=== PATIENT | male | born 1975 | race Caucasian/White ===

== ENCOUNTER → 2018-07-10 14:51 | Outpatient (CLI) | payer OTHER, SELFPAY ==
--- NOTE | 2018-07-10 14:53 | DI.ECHO.S_ITS ---
[facility] +---------+ : : [address] : [place] : : : : [id number] : : : : Phone: [phone]+ Echocardiogram Report + + :Name: ASHWIN ORONA Study Date: 07/10/2018 Height: 71 in : :[facility] Weight: 290 lb : : Gender: Male BSA: 2.5 m2 : :: 1975 Age: 42 yrs BP: 140/108 mmHg: :Reason For Study: Atrial fibrillation : : Performed By: Belgica Beyer : :Referring: JOHN KENDALL : + + Interpretation Summary The patient was in atrial fibrillation with heart rates between 71-81 bpm during the exam. Moderate concentric left ventricular hypertrophy with ejection fraction 45- 50%. Mildly dilated right ventricle with mildly reduced right ventricular systolic function. Moderately dilated left atrium. Mildly dilated right atrium. Trace mitral regurgitation. Comparison is made with the echocardiogram of 02-17-17, mitral regurgitation has improved and atrial fibrillation is new. Procedure: A two-dimensional transthoracic echocardiogram with color flow and Doppler was performed. The study quality was technically adequate. Comparison is made with the echocardiogram of 02-17-17. The patient was in atrial fibrillation with heart rates between 71-81 bpm during the exam. Left Ventricle: The left ventricle is normal in size. There is moderate concentric left ventricular hypertrophy. The ejection fraction is estimated to be 45-50%. There is mild global hypokinesis of the left ventricle. Diastolic function could not be accurately assessed due to atrial fibrillation. Right Ventricle: The right ventricle is mildly dilated. Right ventricular systolic function is mildly reduced. There has been no significant change since the previous study. Atria: The left atrium is moderately dilated. The right atrium is mildly dilated. The interatrial septum is intact with no evidence for an atrial septal defect. Mitral Valve: The mitral valve is normal in structure and function. There is trace mitral regurgitation. Aortic Valve: The aortic valve is trileaflet. The aortic valve opens well. The aortic valve is slightly calcified. No aortic regurgitation is present. Tricuspid Valve: The tricuspid valve is normal in structure and function. There is a trace or physiologic amount of tricuspid regurgitation. Pulmonic Valve: The pulmonic valve is normal in structure and function. There is trace pulmonic regurgitation. Great Vessels: The aortic root is normal size. The dimensions of the ascending aorta are normal. The aortic arch is mildly enlarged. The IVC is of normal diameter and collapses greater than 50% with a sniff. This suggests a low right atrial pressure of 3 mm Hg. Pericardium/ Pleura There is no pericardial effusion. There is no pleural effusion. MMode/2D Measurements & Calculations LVIDd: 4.7 cm Ao root diam: 3.7 cm LVIDs: 3.4 cm Aortic Jxn: 2.8 cm FS: 26.9 % asc Aorta Diam: 3.3 cm IVSd: 1.4 cm Ao Arch Diam (Prox Trans): 3.4 cm LVPWd: 1.3 cm LV contreras. diameter/BSA (cm/m^2): 1.9 LV sys. diameter/BSA (cm/m^2): 1.4 LA A2 area: 26.6 cm2 RA long axis: 6.0 cm LA A4 area: 30.2 cm2 RA area: 24.8 cm2 LA length (vol): 6.0 cm RA vol: 86.6 ml LA vol: 113.5 ml RA : 35.1 ml/m2 LA vol index: 46.0 ml/m2 IVC diam: 1.6 cm RVDd major: 6.7 cm RVD1 (basal): 3.6 cm LA Length_phl: 5.8 cm RVD2 (mid): 3.5 cm Doppler Measurements & Calculations Ao V2 max: 73.6 cm/sec MV P1/2t: 45.1 msec Ao V2 mean: 44.9 cm/sec Ao max P.2 mmHg Ao mean P.00 mmHg Ao V2 VTI: 12.2 cm PA V2 max: 54.6 cm/sec MV P1/2t max dania: 103.6 cm/sec PA V2 mean: 35.5 cm/sec MVA(P1/2t): 4.9 cm2 PA mean P.62 mmHg PA Accel Time: 0.16 sec Electronically signed by: Garrick Sparks on Reading Physician:07/10/2018 05:38 PM
== END ==
PROVIDERS: Visit Provider Internal Medicine
DX: I48.91 Unspecified atrial fibrillation (principal)
CPT/HCPCS: 93306

== ENCOUNTER → 2018-08-27 08:04 | Outpatient (CLI) | payer OTHER, SELFPAY ==
--- NOTE | 2018-08-27 09:24 | PM.TREADMILL ---
Cardiac Stress Test Report Referral & Results Date Patient Seen: 08/27/18 Requesting provider: Elio Potter Indication: Atrial fibrillation Rest ECG: Atrial fibrillation with controlled ventricular response Procedure Note: Today following both written and verbal informed consent the patient was exercised according to a standard [place] protocol patient went for a total of 6 minutes 55 seconds achieving a maximum heart rate of 109. This point patient was experiencing severe leg fatigue did not think he can continue more than about 60 more seconds. It was clear he was not going to achieve anything close to his heart rate target which was in the 150 range. Therefore the treadmill was slowed to 1 mi an hour with no elevation and he was administered Lexiscan immediately followed by the Cardiolite imaging isotope. Patient continued on the treadmill at 1 mi an hour and no elevation for an additional 3 minutes. Patient had no ST-T segment changes at any point. His blood pressure response appeared normal but his heart rate response to exercise was clearly blunted as above. Patient denied any dyspnea his primary symptoms really were that of leg fatigue. It was not necessarily made worse by the administration of the Lexiscan material. Occasional PVC including single ventricular couplet were identified Impression: No evidence of ischemia at any point. Real details regarding perfusion will be available via Cardiolite perfusion imaging report. Patient clearly has a blunted heart rate response to exercise in the setting of atrial fibrillation on calcium channel roberta. Patient's symptoms of leg fatigue are very atypical to be connected to lack of appropriate chronotropic response in my opinion. However there may be some element of conduction system disease here that is yet to be identified (given his lack of response, which is unusual in AFib). Discussed this briefly with the patient as well. Please note: Actual ECG tracings can be found in the PACS system.
--- NOTE | 2018-08-31 08:00 | DI.NM.S_ITS ---
DATE OF SERVICE: PROCEDURE: Two-day treadmill nuclear stress test. INDICATIONS: Atrial fibrillation. ISOTOPES: 25.4 mCi of Technetium-99m injected at rest and 25.5 mCi Technetium- 99m injected for stress dose. CLINICAL: Patient exercised for 10 minutes and 4 seconds, reaching 7.0 METs. Patient reached 63% of the target maximum predicted heart rate. Therefore, study was switched to Lexiscan. No angina during the study. ECG: Atrial fibrillation during the entire study. Occasional PVCs. No diagnostic ST-T changes during the stress test. PERFUSION IMAGES: Normal perfusion images with no evidence of ischemia or infarction. GATED IMAGES: Mildly enlarged left ventricle (158 cc, end-diastolic volume at rest) with normal systolic function with EF 59% post stress. TID ratio is normal at 0.93. Lung/heart ratio is 0.32 (normal). CONCLUSIONS: 1. Normal low-risk nuclear stress test. 2. Normal perfusion images with no evidence of ischemia or infarction. 3. Mildly enlarged left ventricle with normal wall motion and normal systolic function (EF post stress 59%). 4. No ECG changes suggestive of ischemia. 5. No angina during the stress test. 6. 7.0 METs achieved with treadmill. Since only 63% of maximum predicted heart rate was reached with exercise, study was switched to Lexiscan. 7. No prior nuclear stress test available for comparison. Tonya Eldon - NAVA/henrik/darya doc#: [id number]/job#: [id number] dd: 08/28/2018 12:28:00 dt: 08/28/2018 14:21:00 DICTATING /COPIES TO: Chaitanya Gan MD COPIES MNE: DAVID
== END ==
PROVIDERS: PCP Internal Medicine; Visit Provider Internal Medicine
DX: I48.91 Unspecified atrial fibrillation (principal); R53.83 Other fatigue
CPT/HCPCS: 78452; 93016; 93017; 93018; A9502; J2785

== ENCOUNTER → 2020-01-20 08:14 | Outpatient (CLI) | payer OTHER, SELFPAY ==
[2020-01-21 10:30] LABS: COVID19 Sendout Not Detected
== END ==
PROVIDERS: PCP Internal Medicine; Visit Provider Physician Assistant
DX: Z11.59 Encounter for screening for other viral diseases (principal)
CPT/HCPCS: 87635

== ENCOUNTER → 2020-03-24 15:24 | Outpatient (CLI) | payer OTHER, SELFPAY ==
[2020-03-27 03:28] LABS: COVID19 Sendout Not Detected (Not Detect)
== END ==
PROVIDERS: PCP Internal Medicine; Visit Provider Physician Assistant
DX: Z11.59 Encounter for screening for other viral diseases (principal)
CPT/HCPCS: 87635

== ENCOUNTER → 2020-06-05 10:18 | Outpatient (CLI) | payer OTHER, SELFPAY ==
--- NOTE | 2020-06-05 10:24 | DI.RAD.S_ITS ---
PROCEDURE: XR ANKLE LT MIN 3V INDICATIONS: LT LOWER LEG PAIN TECHNIQUE: 3 views of the ankle were acquired. COMPARISON: [facility], CR, XR FOOT LT MIN 3V, 06/05/2020, 10:38. FINDINGS: Bones: No fractures or dislocations. Ankle mortise is normally aligned. No suspicious bony lesions. Soft tissues: No tibiotalar joint effusion. Achilles tendon appears normal. IMPRESSION: No fracture or dislocation. Please see separately dictated foot radiographs. Dictated by: Jj Gomez M.D. on 06/05/2020 at 10:02 Approved by: Jj Gomez M.D. on 06/05/2020 at 10:04
--- NOTE | 2020-06-05 10:24 | DI.RAD.S_ITS ---
PROCEDURE: XR FOOT LT MIN 3V INDICATIONS: LT LOWER LEG PAIN TECHNIQUE: 3 views of the foot were acquired. COMPARISON: None. FINDINGS: Bones: No fractures or dislocations. There is a well-marginated cyst in the anterior body of the calcaneus. Soft tissues: No tibiotalar joint effusion. Achilles tendon appears normal. IMPRESSION: No fracture or dislocation. Incidental well-marginated cyst in the calcaneus. Primary diagnostic considerations include simple bone cyst and intraosseous lipoma. Dictated by: Jj Gomez M.D. on 06/05/2020 at 10:04 Approved by: Jj Gomez M.D. on 06/05/2020 at 10:14
== END ==
PROVIDERS: PCP Internal Medicine; Referring Provider Physician Assistant; Visit Provider Physician Assistant
DX: L97.509 Non-pressure chronic ulcer of other part of unspecified foot with unspecified severity (principal); M85.672 Other cyst of bone, left ankle and foot
CPT/HCPCS: 73610; 73630

== ENCOUNTER → 2020-07-04 14:58 | Outpatient (CLI) | payer OTHER, SELFPAY | PROVIDERS: Family Provider Internal Medicine; PCP Internal Medicine; Referring Provider Internal Medicine; Visit Provider Family Medicine | DX: E11.621 Type 2 diabetes mellitus with foot ulcer (principal); L97.321 Non-pressure chronic ulcer of left ankle limited to breakdown of skin; L97.521 Non-pressure chronic ulcer of other part of left foot limited to breakdown of skin; L97.411 Non-pressure chronic ulcer of right heel and midfoot limited to breakdown of skin; L97.311 Non-pressure chronic ulcer of right ankle limited to breakdown of skin; E11.40 Type 2 diabetes mellitus with diabetic neuropathy, unspecified | CPT/HCPCS: 97597; 99204; 99213 ==

== ENCOUNTER → 2020-07-11 14:52 | Outpatient (CLI) | payer OTHER, SELFPAY | PROVIDERS: Family Provider Internal Medicine; PCP Internal Medicine; Referring Provider Internal Medicine; Visit Provider Family Medicine | DX: E11.40 Type 2 diabetes mellitus with diabetic neuropathy, unspecified (principal); L97.321 Non-pressure chronic ulcer of left ankle limited to breakdown of skin; L97.521 Non-pressure chronic ulcer of other part of left foot limited to breakdown of skin; L97.311 Non-pressure chronic ulcer of right ankle limited to breakdown of skin; E11.621 Type 2 diabetes mellitus with foot ulcer | CPT/HCPCS: 11042 ==

== ENCOUNTER → 2020-07-17 12:00 | Outpatient (CLI) | payer OTHER, SELFPAY | PROVIDERS: Family Provider Internal Medicine; PCP Internal Medicine; Referring Provider Internal Medicine; Visit Provider Family Medicine | DX: E11.621 Type 2 diabetes mellitus with foot ulcer (principal); L97.321 Non-pressure chronic ulcer of left ankle limited to breakdown of skin; L97.521 Non-pressure chronic ulcer of other part of left foot limited to breakdown of skin; E11.40 Type 2 diabetes mellitus with diabetic neuropathy, unspecified | CPT/HCPCS: 11042 ==

== ENCOUNTER → 2020-07-21 13:36 | Outpatient (CLI) | payer OTHER, SELFPAY ==
[2020-07-27 10:49] LABS: Prediastolic 127; Presystolic 156; Pulse 102; Temperature 97
[2020-07-27 10:50] LABS: Amount Collected in g 585 GRAMS; Dizziness N; Postdiastolic BP 105; Postsystolic BP 146; Site of phlebotomy LEFT/RIGHT AC; Swelling N
[2020-07-27 10:51] LABS: Therapeutic Phleb Comment Y
[2020-07-27 11:56] LABS: Zero Check Sebra Scale 585 GRAMS
[2020-07-27 11:57] LABS: 585 Gram Check 585 GRAMS
== END ==
PROVIDERS: Family Provider Internal Medicine; PCP Internal Medicine; Referring Provider Internal Medicine; Visit Provider Internal Medicine
DX: D75.1 Secondary polycythemia (principal)
CPT/HCPCS: 99195

== ENCOUNTER → 2020-07-25 10:41 | Outpatient (CLI) | payer OTHER, SELFPAY | PROVIDERS: Family Provider Internal Medicine; PCP Internal Medicine; Referring Provider Internal Medicine; Visit Provider Family Medicine | DX: E11.621 Type 2 diabetes mellitus with foot ulcer (principal); L97.322 Non-pressure chronic ulcer of left ankle with fat layer exposed; L97.521 Non-pressure chronic ulcer of other part of left foot limited to breakdown of skin; E11.40 Type 2 diabetes mellitus with diabetic neuropathy, unspecified; G89.18 Other acute postprocedural pain | CPT/HCPCS: 11042 ==

== ENCOUNTER → 2020-07-26 09:29 | Outpatient (CLI) | payer OTHER, SELFPAY | PROVIDERS: Family Provider Internal Medicine; PCP Internal Medicine; Referring Provider Internal Medicine; Visit Provider Family Medicine | DX: E11.621 Type 2 diabetes mellitus with foot ulcer (principal); E11.622 Type 2 diabetes mellitus with other skin ulcer; L97.321 Non-pressure chronic ulcer of left ankle limited to breakdown of skin; L97.521 Non-pressure chronic ulcer of other part of left foot limited to breakdown of skin | CPT/HCPCS: 99212 ==

== ENCOUNTER → 2020-07-27 08:40 | Outpatient (CLI) | payer OTHER, SELFPAY | PROVIDERS: Family Provider Internal Medicine; PCP Internal Medicine; Referring Provider Internal Medicine; Visit Provider Family Medicine | DX: E11.621 Type 2 diabetes mellitus with foot ulcer (principal); L97.321 Non-pressure chronic ulcer of left ankle limited to breakdown of skin; L97.521 Non-pressure chronic ulcer of other part of left foot limited to breakdown of skin | CPT/HCPCS: 99213 ==

== ENCOUNTER → 2020-08-03 09:18 | Outpatient (CLI) | payer OTHER, SELFPAY | PROVIDERS: Family Provider Internal Medicine; PCP Internal Medicine; Referring Provider Internal Medicine; Visit Provider Family Medicine | DX: E11.621 Type 2 diabetes mellitus with foot ulcer (principal); L97.521 Non-pressure chronic ulcer of other part of left foot limited to breakdown of skin; L97.321 Non-pressure chronic ulcer of left ankle limited to breakdown of skin; E11.40 Type 2 diabetes mellitus with diabetic neuropathy, unspecified | CPT/HCPCS: 11042; 87070; 87075; 87077; 87205; 97597; 99213 ==

== ENCOUNTER → 2020-08-08 09:21 | Outpatient (CLI) | payer OTHER, SELFPAY | PROVIDERS: Family Provider Internal Medicine; PCP Internal Medicine; Referring Provider Internal Medicine; Visit Provider Family Medicine | DX: E11.621 Type 2 diabetes mellitus with foot ulcer (principal); L97.526 Non-pressure chronic ulcer of other part of left foot with bone involvement without evidence of necrosis; L97.321 Non-pressure chronic ulcer of left ankle limited to breakdown of skin; L08.9 Local infection of the skin and subcutaneous tissue, unspecified; E11.40 Type 2 diabetes mellitus with diabetic neuropathy, unspecified; B95.7 Other staphylococcus as the cause of diseases classified elsewhere; Z79.2 Long term (current) use of antibiotics | CPT/HCPCS: 73630; 97597; 99214 ==

== ENCOUNTER → 2020-08-08 09:46 | Outpatient (CLI) | payer OTHER, SELFPAY ==
--- NOTE | 2020-08-08 09:49 | DI.RAD.S_ITS ---
PROCEDURE: XR FOOT LT MIN 3V INDICATIONS: EVALUATE OSTEOMYLITIS LT 2ND DIGIT TECHNIQUE: 3 views of the foot were acquired. COMPARISON: [facility], CR, XR ANKLE LT MIN 3V, 06/05/2020, 10:38. [facility], CR, XR FOOT LT MIN 3V, 06/05/2020, 10:38. FINDINGS: Bones: No fractures or dislocations. No suspicious bony lesions. Lucency in calcaneus is compatible with a cyst. Soft tissues: No tibiotalar joint effusion. Achilles tendon appears normal. IMPRESSION: No radiographic finding to suggest osteomyelitis. If clinical symptoms persist or clinical suspicion is high, a triple phase bone scan or MRI with and without contrast is suggested for further evaluation. Dictated by: Kristine Bolton M.D. on 08/08/2020 at 11:42 Approved by: Kristine Bolton M.D. on 08/08/2020 at 11:54
== END ==
PROVIDERS: Family Provider Internal Medicine; PCP Internal Medicine; Referring Provider Family Medicine; Visit Provider Family Medicine
DX: L97.526 Non-pressure chronic ulcer of other part of left foot with bone involvement without evidence of necrosis (principal)
CPT/HCPCS: 73630

== ENCOUNTER → 2020-08-24 09:22 | Outpatient (CLI) | payer OTHER, SELFPAY | PROVIDERS: Family Provider Internal Medicine; PCP Internal Medicine; Referring Provider Internal Medicine; Visit Provider Family Medicine | DX: E11.621 Type 2 diabetes mellitus with foot ulcer (principal); L97.321 Non-pressure chronic ulcer of left ankle limited to breakdown of skin; L97.521 Non-pressure chronic ulcer of other part of left foot limited to breakdown of skin; E11.40 Type 2 diabetes mellitus with diabetic neuropathy, unspecified | CPT/HCPCS: 99213 ==

== ENCOUNTER → 2020-08-31 11:29 | Outpatient (CLI) | payer OTHER, SELFPAY | PROVIDERS: Family Provider Internal Medicine; PCP Internal Medicine; Referring Provider Internal Medicine; Visit Provider Family Medicine | DX: E11.621 Type 2 diabetes mellitus with foot ulcer (principal); L97.321 Non-pressure chronic ulcer of left ankle limited to breakdown of skin; E11.40 Type 2 diabetes mellitus with diabetic neuropathy, unspecified; R60.0 Localized edema | CPT/HCPCS: 99213 ==

== ENCOUNTER → 2020-09-05 10:00 | Outpatient (CLI) | payer OTHER, SELFPAY ==
[2020-09-05 10:56] LABS: 585 Gram Check PASS; Dizziness NO; Postdiastolic BP 101; Postsystolic BP 145; Prediastolic 111; Presystolic 163; Pulse 82; Site of phlebotomy R WRIST; Swelling NO; Therapeutic Phleb Comment NO COMMENT; Zero Check Sebra Scale PASS
== END ==
PROVIDERS: Family Provider Internal Medicine; PCP Internal Medicine; Referring Provider Internal Medicine; Visit Provider Internal Medicine
DX: I50.42 Chronic combined systolic (congestive) and diastolic (congestive) heart failure; E11.21 Type 2 diabetes mellitus with diabetic nephropathy; I11.0 Hypertensive heart disease with heart failure
CPT/HCPCS: 99195

== ENCOUNTER → 2020-09-11 14:50 | Outpatient (CLI) | payer OTHER, SELFPAY | PROVIDERS: Family Provider Internal Medicine; PCP Internal Medicine; Referring Provider Internal Medicine; Visit Provider Family Medicine | DX: E11.621 Type 2 diabetes mellitus with foot ulcer (principal); L97.321 Non-pressure chronic ulcer of left ankle limited to breakdown of skin; E11.40 Type 2 diabetes mellitus with diabetic neuropathy, unspecified; Z48.01 Encounter for change or removal of surgical wound dressing | CPT/HCPCS: 99212; 99213 ==

== ENCOUNTER → 2020-09-25 10:05 | Outpatient (CLI) | payer OTHER, SELFPAY | PROVIDERS: Family Provider Internal Medicine; PCP Internal Medicine; Referring Provider Internal Medicine; Visit Provider Family Medicine | DX: E11.621 Type 2 diabetes mellitus with foot ulcer (principal); L97.321 Non-pressure chronic ulcer of left ankle limited to breakdown of skin; R60.0 Localized edema; E11.40 Type 2 diabetes mellitus with diabetic neuropathy, unspecified | CPT/HCPCS: 97597 ==

== ENCOUNTER → 2020-10-09 09:13 | Outpatient (CLI) | payer OTHER, SELFPAY | PROVIDERS: Family Provider Internal Medicine; PCP Internal Medicine; Referring Provider Internal Medicine; Visit Provider Family Medicine | DX: E11.40 Type 2 diabetes mellitus with diabetic neuropathy, unspecified (principal); Z86.31 Personal history of diabetic foot ulcer | CPT/HCPCS: 99213 ==

== ENCOUNTER → 2020-11-06 12:49 | Outpatient (CLI) | payer OTHER, SELFPAY | PROVIDERS: Family Provider Internal Medicine; PCP Internal Medicine; Referring Provider Internal Medicine; Visit Provider Family Medicine | DX: E11.40 Type 2 diabetes mellitus with diabetic neuropathy, unspecified (principal); M79.675 Pain in left toe(s) | CPT/HCPCS: 99212; 99213 ==

== ENCOUNTER 2022-07-15 10:07 | Observation (INO) | payer OTHER, SELFPAY ==
[2022-07-15] VITALS (43 sets, daily range): BP systolic 117–182; BP diastolic 90–122; PULSE 67–133; RESP 8–25; TEMP 35.8–36.8; O2SAT 91–98; BMI 39.0; BMI 38.7
[2022-07-15 10:45] LABS: Add Manual Diff / Slide Review NO; Basophils Absolute Auto 100 /uL (0-100); Basophils Percent Auto 0.7 % (0-2); Eosinophils Absolute Auto 100 /uL (0-450); Eosinophils Percent Auto 0.8 % (2-4); Hematocrit 55.5 % (41-53); Lymphocytes Absolute Auto 1600 /uL (1100-4500); Lymphocytes Percent Auto 11.8 % (25-40); Mean Corpuscular HGB Conc 34.2 % (30-36); Mean Corpuscular Hemoglobin 31.2 PG (26-34); Mean Corpuscular Volume 91.5 fL (80-100); Monocytes Absolute Auto 1000 /uL (0-900); Monocytes Percent Auto 6.9 % (3-14); Neutrophils Absolute Auto 11000 /uL (1500-7000); Neutrophils Percent Auto 79.8 % (50-75); Platelet Count 217 X10^3/uL (150-400); Red Blood Cell Count 6.07 X10^6/uL (4.5-5.9); Red Cell Distribution Width 13.8 % (11.6-14.8); White Blood Cell Count 13.8 X10^3/uL (4.5-11.0)
--- NOTE | 2022-07-15 10:51 | ED.ABDPAIN ---
HPI - Abdominal Pain General Chief Complaint: Abdominal Pain Stated Complaint: pit in my stomach pain Time Seen by Provider: 07/15/22 10:21 Source: patient Mode of arrival: Ambulatory History of Present Illness HPI narrative: 46-year-old male nonsmoker with history of paroxysmal AFib on Eliquis, diabetes, hypertension presents with about 5 days of a fullness in his central chest and upper abdomen. He denies any specific pain or shortness of breath. He denies any obvious provocation, palliation or radiation. He is had no fever or chills denies nausea, vomiting or diarrhea. He denies any dysuria, frequency or urgency. He states he absolutely has been ?scientology? about taking his Eliquis and denies any missed doses for quite some time. He states he has been taking it for many years. He does state however that he is not taken his Cardizem 360 mg for a few weeks because they would not refill it. Related Data Home Medications Medication Instructions Recorded Confirmed carvedilol 25 mg tablet (Coreg) 50 mg PO BID 09/16/18 07/15/22 glimepiride 2 mg tablet 2 mg PO QAM 09/16/18 07/15/22 hydrochlorothiazide 25 mg tablet 50 mg PO DAILY 09/16/18 07/15/22 apixaban 5 mg tablet (Eliquis) 5 mg PO BID 07/15/22 07/15/22 atorvastatin 20 mg tablet (Lipitor) 20 mg PO QPM 07/15/22 07/15/22 diltiazem HCl 360 mg capsule,24 360 mg PO DAILY 07/15/22 07/15/22 hr,extended release dulaglutide 0.75 mg/0.5 mL 0.75 mg SUBCUT QWEEK 07/15/22 07/15/22 subcutaneous pen injector (Trulicity) empagliflozin 25 mg tablet 25 mg PO DAILY 07/15/22 07/15/22 (Jardiance) telmisartan 80 mg tablet 80 mg PO DAILY 07/15/22 07/15/22 Previous Rx's Medication Instructions Recorded potassium chloride 20 mEq 20 meq PO BIDCC ##60 02/19/17 tablet,extended release(part/cryst) (Klor-Con M) Allergies Allergy/AdvReac Type Severity Reaction Status Date / Time No Known Drug Allergies Allergy Verified 07/15/22 10:16 Review of Systems Review of Systems Narrative: GENERAL: Denies chills, fatigue, malaise, fever, sweats. HEENT: Denies sinus pain, ear pain, sore throat, difficulty swallowing, dizziness. RESPIRATORY: Denies dyspnea, cough, wheezing, hemoptysis, sputum. CARDIOVASCULAR: See HPI GASTROINTESTINAL: See HPI : Denies dysuria, frequency, incontinence, hematuria, urinary retention. MUSCULOSKELETAL: denies weakness, joint pain, or bony pain SKIN: Denies rash, skin lesions, or other NEUROLOGIC: Denies weakness, headache, numbness, change in speech, confusion, seizures, incoordination. PSYCHIATRIC: No concerning psychosocial issues. 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 Well-developed patient, in mild distress. HEAD: Atraumatic. Normocephalic. EYES: Pupils equal round and reactive. Extraocular motions intact. No scleral icterus. No injection or drainage. ENT: Nose without bleeding, purulent drainage. Throat without erythema, tonsillar hypertrophy or exudate. Airway patent. NECK: Trachea midline. Non tender CARDIOVASCULAR: Tachycardic and irregular rhythm without murmurs, gallops, or rubs. RESPIRATORY: Clear to auscultation. Breath sounds equal bilaterally. No wheezes, rales, or rhonchi. GASTROINTESTINAL: Abdomen soft, non-tender, nondistended. EXTREMITIES: No edema or joint tenderness. BACK: Nontender without deformity or crepitance. No flank tenderness. NEURO: AOx3. SKIN: No rash or erythema of visible areas Initial Vital Signs Initial Vital Signs: Vital Signs Temperature 96.4 F L 07/15/22 10:16 Pulse Rate 67 07/15/22 10:16 Respiratory Rate 18 07/15/22 10:16 Blood Pressure 117/91 H 07/15/22 10:16 Pulse Oximetry 97 07/15/22 10:16 Oxygen Delivery Method 07/15/22 10:16 Procedures Cardioversion Consent Signed: Yes Indication: Rapid atrial fibrillation Stability: Stable Number of attempts (shocks): 3 Joules used: 120, 150 and 200 Cardiac rhythm post-cardioversion: Rapid AFib Procedural Sedation Consent signed: Yes Time out performed: Yes Indication: cardioversion ASA Class: II Mallampati Airway Classification: Class II Preparation: pediatric allergist applied, pulse oximeter, capnometry used, supplemental O2 applied, suction/airway equipment at bedside and IV secured IV Propofol dose (mg): 100 Intraservice time/total sedation time (min): 12 ED Sedation Level: Moderate (Concious) Patient Tolerated Procedure: Well Complications: none Course Course Course Narrative: Patient presents with rapid atrial fibrillation and only complaint of some vague, burning lower chest discomfort. He has a known diagnosis of atrial fibrillation, prior EKGs all normal sinus rhythm, suggesting paroxysmal AFib. Patient has been on anticoagulation for multiple years and denies missing any doses. Is appropriate candidate for cardioversion, unfortunately after multiple attempts under a single sedation he did not convert, we switched our focused to rate control and he will require hospitalization for ongoing treatment and stabilization Orders Ordered: Acetaminophen (Acetaminophen 325 Mg Tablet) 650 mg PO Q6H PRN PRN Reason: Fever/Mild Pain (1-3) Last Admin: 07/15/22 21:11 Dose: 650 mg Documented By: DL Apixaban (Apixaban 5 Mg Tablet) 5 mg PO BID FOR[facility], [facility]1983 Last Admin: 07/15/22 21:05 Dose: 5 mg Documented By: DL Atorvastatin Calcium (Atorvastatin 20 Mg Tablet) 20 mg PO QPM [facility], [facility]1983 Last Admin: 07/15/22 21:05 Dose: 20 mg Documented By: DL Carvedilol (Carvedilol 12.5 Mg Tablet) 25 mg PO BID [facility], [facility]1983 Last Admin: 07/15/22 21:05 Dose: 25 mg Documented By: DL Dextrose (Dextrose 50 % In Water 25 Gm/50 Ml Syringe) 25 gm IV PRN PRN PRN Reason: Hypoglycemia Diltiazem HCl (Diltiazem Cd 180 Mg Cap) 360 mg PO DAILY MARIEL DILTIAZEM (Diltiazem 125 Mg/125 Ml-D5w) 125 mg in 125 mls @ 5 mls/hr IV TITRATE MARIEL; Protocol Last Titration: 07/15/22 17:40 Dose: 0 mg/hr, 0 mls/hr Documented By: Titration: 07/15/22 16:30 Dose: 5 mg/hr, 5 mls/hr Documented By: Titration: 07/15/22 14:20 Dose: 10 mg/hr, 10 mls/hr Documented By: Titration: 07/15/22 12:20 Dose: 10 mg/hr, 10 mls/hr Documented By: Titration: 07/15/22 12:10 Dose: 7.5 mg/hr, 7.5 mls/hr Documented By: Admin: 07/15/22 11:55 Dose: 5 mg/hr, 5 mls/hr Documented By: MLM Insulin Human Lispro (Insulin Lispro 100 Unit/Ml 3ml Vial) 0 unit SUBCUT ACHS MARIEL; Protocol Last Admin: 07/15/22 21:10 Dose: Not Given Documented By: Admin: 07/15/22 17:22 Dose: Not Given Documented By: CLP Naloxone HCl (Naloxone 0.4 Mg/Ml Vial) 0.2 mg IV Q2MIN PRN PRN Reason: Opiate Reversal Ondansetron HCl (Ondansetron 4 Mg Odt) 4 mg PO Q8HR PRN PRN Reason: Nausea And Vomiting Discontinued Medications Diltiazem HCl (Diltiazem Cd 180 Mg Cap) 180 mg PO NOW ONE Stop: 07/15/22 15:23 Last Admin: 07/15/22 15:33 Dose: 180 mg Documented By: ZEKE Ondansetron HCl (Ondansetron 4 Mg Odt) 4 mg PO NOW PRN PRN Reason: Nausea And Vomiting Ondansetron HCl (Ondansetron 4 Mg/2 Ml Inj) 4 mg IV NOW PRN PRN Reason: Nausea And Vomiting Propofol (Propofol 200 Mg/20 Ml Vial) 125 mg 1 mg/kg (125 mg) IV NOW ONE Stop: 07/15/22 11:23 Last Admin: 07/15/22 12:28 Dose: Not Given Documented By: MLM Propofol (Propofol 200 Mg/20 Ml Vial) 50 mg IV NOW ONE Stop: 07/15/22 12:30 Last Admin: 07/15/22 11:38 Dose: 50 mg Documented By: MLM Propofol (Propofol 200 Mg/20 Ml Vial) 30 mg IV NOW ONE Stop: 07/15/22 12:30 Last Admin: 07/15/22 11:39 Dose: 30 mg Documented By: MLM Propofol (Propofol 200 Mg/20 Ml Vial) 20 mg IV NOW ONE Stop: 07/15/22 12:31 Last Admin: 07/15/22 11:40 Dose: 20 mg Documented By: MLRamon Consultations Consultation #1: hospitalist happy to accept Vital Signs Vital signs: Vital Signs - 8 hr 07/15/22 10:16 07/15/22 11:37 07/15/22 10:48 Temperature 96.4 F L Pulse Rate 67 133 H 72 Respiratory Rate 18 14 Blood Pressure 117/91 H 182/122 H Pulse Oximetry 97 98 96 Oxygen Delivery Method Room Air 07/15/22 11:00 07/15/22 11:00 07/15/22 11:30 Temperature Pulse Rate 127 H 130 H Respiratory Rate 8 L 20 Blood Pressure 136/93 H Pulse Oximetry 96 97 Oxygen Delivery Method 07/15/22 11:25 07/15/22 11:38 07/15/22 11:38 Temperature Pulse Rate 133 H 129 H Respiratory Rate 14 12 Blood Pressure 182/122 H Pulse Oximetry 97 Oxygen Delivery Method 07/15/22 11:40 07/15/22 11:40 07/15/22 11:43 Temperature Pulse Rate 129 H Respiratory Rate 10 L Blood Pressure 153/97 H 145/98 H Pulse Oximetry 96 Oxygen Delivery Method 07/15/22 11:43 07/15/22 11:45 07/15/22 11:45 Temperature Pulse Rate 124 H 124 H Respiratory Rate 15 9 L Blood Pressure 132/90 Pulse Oximetry 91 93 Oxygen Delivery Method 07/15/22 11:53 07/15/22 11:53 Temperature Pulse Rate 87 Respiratory Rate 25 H Blood Pressure 143/97 H Pulse Oximetry 95 Oxygen Delivery Method MDM - Abdominal Pain Lab Data 07/15/22 10:30 07/15/22 10:30 Labs: Lab Results 07/15/22 07/15/22 07/15/22 Range/Units 10:30 10:30 10:30 WBC 13.8 H (4.5-11.0) X10^3/uL RBC 6.07 H (4.5-5.9) X10^6/uL Hgb 19.0 H (13.5-17.5) g/dL Hct 55.5 H (41-53) % MCV 91.5 (80-100) fL MCH 31.2 (26-34) PG MCHC 34.2 (30-36) % RDW 13.8 (11.6-14.8) % Plt Count 217 (150-400) X10^3/uL Neut % (Auto) 79.8 H (50-75) % Lymph % (Auto) 11.8 L (25-40) % Childress % (Auto) 6.9 (3-14) % Eos % (Auto) 0.8 L (2-4) % Baso % (Auto) 0.7 (0-2) % Neut # (Auto) 85464 H (8923-3097) /uL Lymph # (Auto) 1600 (8643-1545) /uL Childress # (Auto) 1000 H (0-900) /uL Eos # (Auto) 100 (0-450) /uL Baso # (Auto) 100 (0-100) /uL PT 19.9 H (10.1-12.7) SECONDS INR 1.7 H (0.9-1.3) Sodium 134 L (137-145) mmol/L Potassium 3.7 (3.4-5.1) mmol/L Chloride 99 (98-107) mmol/L Carbon Dioxide 26 (22-32) mmol/L BUN 21 H (9-20) mg/dL Creatinine 1.22 (0.66-1.25) mg/dL Estimated GFR > 60 (>60) mL/min BUN/Creatinine Ratio 17.2 (6-22) Glucose 198 H (70-100) mg/dL Calcium 8.8 (8.4-10.2) mg/dL Total Bilirubin 2.0 H (0.2-1.3) mg/dL AST 26 (17-59) IU/L ALT 26 (<50) IU/L Alkaline Phosphatase 77 (38-126) U/L Total Creatine Kinase 60 (55-170) U/L CK-MB (CK-2) TNP CK-MB (CK-2) Rel Index TNP Troponin I < 0.012 (0.01-0.034) ng/mL NT-Pro-B Natriuret Pep (<125) pg/mL Total Protein 7.2 (6.3-8.2) g/dL Albumin 4.0 (3.5-5.0) g/dL Globulin 3.2 (1.7-4.1) g/dL Albumin/Globulin Ratio 1.3 (1.0-2.8) Lipase 387 H (23-300) U/L 07/15/22 Range/Units 10:30 WBC (4.5-11.0) X10^3/uL RBC (4.5-5.9) X10^6/uL Hgb (13.5-17.5) g/dL Hct (41-53) % MCV (80-100) fL MCH (26-34) PG MCHC (30-36) % RDW (11.6-14.8) % Plt Count (150-400) X10^3/uL Neut % (Auto) (50-75) % Lymph % (Auto) (25-40) % Childress % (Auto) (3-14) % Eos % (Auto) (2-4) % Baso % (Auto) (0-2) % Neut # (Auto) (2773-9260) /uL Lymph # (Auto) (0460-9281) /uL Childress # (Auto) (0-900) /uL Eos # (Auto) (0-450) /uL Baso # (Auto) (0-100) /uL PT (10.1-12.7) SECONDS INR (0.9-1.3) Sodium (137-145) mmol/L Potassium (3.4-5.1) mmol/L Chloride (98-107) mmol/L Carbon Dioxide (22-32) mmol/L BUN (9-20) mg/dL Creatinine (0.66-1.25) mg/dL Estimated GFR (>60) mL/min BUN/Creatinine Ratio (6-22) Glucose (70-100) mg/dL Calcium (8.4-10.2) mg/dL Total Bilirubin (0.2-1.3) mg/dL AST (17-59) IU/L ALT (<50) IU/L Alkaline Phosphatase (38-126) U/L Total Creatine Kinase (55-170) U/L CK-MB (CK-2) CK-MB (CK-2) Rel Index Troponin I (0.01-0.034) ng/mL NT-Pro-B Natriuret Pep 1560 H (<125) pg/mL Total Protein (6.3-8.2) g/dL Albumin (3.5-5.0) g/dL Globulin (1.7-4.1) g/dL Albumin/Globulin Ratio (1.0-2.8) Lipase (23-300) U/L MDM Narrative Medical decision making narrative: CC: 46-year-old male with history of paroxysmal atrial fibrillation on Eliquis, hypertension, hyperlipidemia and diabetes presents with a vague chest burning Complicating co-morbidities: AFib on Eliquis, hypertension, hyperlipidemia, diabetes Data collected from: Patient Medical records reviewed: Multiple prior notes and EMR Differential considered, but not limited to: AFib with RVR, cardiac ischemia, GI complaints such as pancreatitis, gallbladder disease versus other Exam documented above, pertinent findings include: Tachycardic and irregular rhythm without signs of respiratory distress, no reproducible abdominal pain, vitals otherwise stable Lab Test results independently reviewed as above. Pertinent findings: Slight increase in white blood cell count appears rather chronic and of unclear significance, electrolytes without significant abnormalities, troponin negative, BNP slightly elevated. Lipase slightly elevated Independently reviewed EKG as above Imaging studies independently reviewed:None Consultations: Hospitalist (accepts patient on his service) Treatments: Propofol, diltiazem Re-evaluations: Patient recovered without incident after procedural sedation and attempts at cardioversion which unfortunately were not successful. When Cardizem initiated, heart rate decreased from the 120s and 130s down to the 80s and 90s, patient's epigastric and lower chest burning resolved completely with rate control suggesting this is likely a consequence of AFib as opposed to an intra-abdominal pathology. We did discuss holding off on abdominal imaging given resolution of symptoms. Discussion: Patient with about 1 week of rapid atrial fibrillation and unsuccessful attempts at cardioversion requires hospitalization for stabilization of his condition and further evaluation as needed to be determined by hospitalist team patient understands and agrees with diagnosis and treatment plan Discharge Plan Departure Patient Disposition: Admitted as Observation Clinical Impression: Atrial fibrillation with rapid ventricular response Admit Date/Time: 07/15/22 12:13 Admit Provider: Eric Mary
[2022-07-15 10:57] LABS: INR 1.7 (0.9-1.3); Prothrombin Time 19.9 SECONDS (10.1-12.7)
[2022-07-15 10:59] LABS: Alanine Aminotransferase 26 IU/L (<50); Albumin Globulin Ratio 1.3 (1.0-2.8); Alkaline Phosphatase 77 U/L (38-126); Aspartate Aminotransferase 26 IU/L (17-59); BUN Creatinine Ratio 17.2 (6-22); Blood Urea Nitrogen 21 mg/dL (9-20); Calcium 8.8 mg/dL (8.4-10.2); Carbon Dioxide 26 mmol/L (22-32); Chloride 99 mmol/L (98-107); Creatine Kinase 60 U/L (55-170); Estimated Glomerular Filt Rate > 60 mL/min (>60); Globulin 3.2 g/dL (1.7-4.1); Glucose 198 mg/dL (70-100); HEMOLYSIS 18 (0-50); Lipase 387 U/L (23-300); Potassium 3.7 mmol/L (3.4-5.1); Sodium 134 mmol/L (137-145); Total Protein 7.2 g/dL (6.3-8.2)
[2022-07-15 11:06] LABS: NT-proBNP (BNP-Adult 18+) 1560 pg/mL (<125)
[2022-07-15 11:09] LABS: Troponin I < 0.012 ng/mL (0.01-0.034)
[2022-07-15] MEDS: propofoL 200 MG/20 ML VIAL 50 MG IV (11:38)
[2022-07-15] MEDS: propofoL 200 MG/20 ML VIAL 30 MG IV (11:39)
[2022-07-15] MEDS: propofoL 200 MG/20 ML VIAL 20 MG IV (11:40)
[2022-07-15] MEDS: DILTIAZEM 125 MG/125 ML PIGGYBACK IV (11:55)
[2022-07-15 12:45] LABS: COVID19 -Nasal RAPID Negative (Negative)
--- NOTE | 2022-07-15 15:18 | PM.HP.1 ---
History of Present Illness History of Present Illness Date Patient Seen: 07/15/22 Time Patient Seen: 15:18 Chief complaint: pit in my stomach pain Narrative: This is a 46 year old male with PMH of paroxysmal afib, HTN, obesity, diabetes who presented with 3 days of epigastric pain. Patient states for the past 3-4 days he has had epigastric squeeing type pain. It is non-radiating and has been constant but waxing and waning in severity, anywhere from a 3/10 to 6/10. He took some tums with mild improvement, but with continued symptoms today he came to the ER. He denies chest pain or palpitations, no nausea or vomiting, perhaps he has noticed mild diaphoresis but no headaches, vision changes, fever, chills, dysuria or urinary frequency. He had an issue with his insurance and primary care office, has been out of his home diltiazem for a few weeks. In the emergency room, he was found to be tachycardic, in atrial fibrillation with a rate. Was also noted to be mildly hypertensive but the remainder of his vital signs were unremarkable. EKG showed AFib with are without evidence of acute ischemia. Chest x-ray was unremarkable. There was an attempted cardioversion in the ER x3, but without success. He was started on diltiazem infusion, admitted for further management of afib with RVR. After arrival and control of his rate, his abdominal pain has now resolved. 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 Type 2 diabetes mellitus Surgical History No pertinent past surgical history Family & Social History Family History Mother Diabetes mellitus Cancer Father Hypertension Cancer Social History: household members spouse Safety & Behavioral: Feels Safe in Current Yes Environment Tobacco & Substance use: Smoking Status Never smoker alcohol intake frequency holiday/special occasion Substance Use Type does not use Meds Home Medications and Allergies Home Medications Medication Instructions Recorded Confirmed Type potassium chloride 20 mEq 20 meq PO BIDCC ##60 02/19/17 07/15/22 Rx tablet,extended release(part/cryst) (Klor-Con M) carvedilol 25 mg tablet (Coreg) 50 mg PO BID 09/16/18 07/15/22 History glimepiride 2 mg tablet 2 mg PO QAM 09/16/18 07/15/22 History hydrochlorothiazide 25 mg tablet 50 mg PO DAILY 09/16/18 07/15/22 History apixaban 5 mg tablet (Eliquis) 5 mg PO BID 07/15/22 07/15/22 History atorvastatin 20 mg tablet (Lipitor) 20 mg PO QPM 07/15/22 07/15/22 History diltiazem HCl 360 mg capsule,24 360 mg PO DAILY 07/15/22 07/15/22 History hr,extended release dulaglutide 0.75 mg/0.5 mL 0.75 mg SUBCUT QWEEK 07/15/22 07/15/22 History subcutaneous pen injector (Trulicity) empagliflozin 25 mg tablet 25 mg PO DAILY 07/15/22 07/15/22 History (Jardiance) telmisartan 80 mg tablet 80 mg PO DAILY 07/15/22 07/15/22 History Allergies Allergy/AdvReac Type Severity Reaction Status Date / Time No Known Drug Allergies Allergy Verified 07/15/22 10:16 Review of Systems Review of Systems Narrative: All other systems reviewed with the patient and are negative unless otherwise stated. Exam Vital Signs (past 8 hours): - 07/15/22 10:16 07/15/22 11:37 07/15/22 10:48 Temperature 96.4 F L Pulse Rate 67 133 H 72 Respiratory Rate 18 14 Blood Pressure 117/91 H 182/122 H Pulse Oximetry 97 98 96 Oxygen Delivery Method Room Air Oxygen Flow Rate 07/15/22 11:00 07/15/22 11:00 07/15/22 11:30 Temperature Pulse Rate 127 H 130 H Respiratory Rate 8 L 20 Blood Pressure 136/93 H Pulse Oximetry 96 97 Oxygen Delivery Method Oxygen Flow Rate 07/15/22 11:25 07/15/22 11:38 07/15/22 11:38 Temperature Pulse Rate 133 H 129 H Respiratory Rate 14 12 Blood Pressure 182/122 H Pulse Oximetry 97 Oxygen Delivery Method Oxygen Flow Rate 07/15/22 11:40 07/15/22 11:40 07/15/22 11:43 Temperature Pulse Rate 129 H Respiratory Rate 10 L Blood Pressure 153/97 H 145/98 H Pulse Oximetry 96 Oxygen Delivery Method Oxygen Flow Rate 07/15/22 11:43 07/15/22 11:45 07/15/22 11:45 Temperature Pulse Rate 124 H 124 H Respiratory Rate 15 9 L Blood Pressure 132/90 Pulse Oximetry 91 93 Oxygen Delivery Method Oxygen Flow Rate 07/15/22 11:53 07/15/22 11:53 07/15/22 11:55 Temperature Pulse Rate 87 Respiratory Rate 25 H Blood Pressure 143/97 H 150/96 H Pulse Oximetry 95 Oxygen Delivery Method Oxygen Flow Rate 07/15/22 11:55 07/15/22 12:00 07/15/22 12:00 Temperature Pulse Rate 121 H 121 H Respiratory Rate 17 18 Blood Pressure 138/95 H Pulse Oximetry 96 95 Oxygen Delivery Method Oxygen Flow Rate 07/15/22 12:06 07/15/22 12:06 07/15/22 12:10 Temperature Pulse Rate 115 H Respiratory Rate 11 L Blood Pressure 155/105 H 158/97 H Pulse Oximetry 94 Oxygen Delivery Method Oxygen Flow Rate 07/15/22 12:10 07/15/22 12:15 07/15/22 12:15 Temperature Pulse Rate 117 H 116 H Respiratory Rate 14 Blood Pressure 163/105 H Pulse Oximetry 95 95 Oxygen Delivery Method Oxygen Flow Rate 07/15/22 12:20 07/15/22 12:20 07/15/22 12:25 Temperature Pulse Rate 113 H Respiratory Rate 9 L Blood Pressure 167/105 H 155/109 H Pulse Oximetry 96 Oxygen Delivery Method Oxygen Flow Rate 07/15/22 12:25 07/15/22 12:30 07/15/22 12:30 Temperature Pulse Rate 110 H 108 H Respiratory Rate 11 L 14 Blood Pressure 160/112 H Pulse Oximetry 95 95 Oxygen Delivery Method Oxygen Flow Rate 07/15/22 12:35 07/15/22 12:35 07/15/22 12:40 Temperature Pulse Rate 105 H 109 H Respiratory Rate 8 L 12 Blood Pressure 156/111 H Pulse Oximetry 97 96 Oxygen Delivery Method Oxygen Flow Rate 07/15/22 12:40 07/15/22 12:45 07/15/22 12:45 Temperature Pulse Rate 105 H Respiratory Rate 10 L Blood Pressure 157/115 H 149/92 H Pulse Oximetry 96 Oxygen Delivery Method Oxygen Flow Rate 07/15/22 12:50 07/15/22 12:50 07/15/22 12:55 Temperature Pulse Rate 102 H Respiratory Rate 17 Blood Pressure 156/111 H 160/103 H Pulse Oximetry 96 Oxygen Delivery Method Oxygen Flow Rate 07/15/22 12:55 07/15/22 13:00 07/15/22 13:00 Temperature Pulse Rate 103 H 103 H Respiratory Rate 11 L 18 Blood Pressure 167/112 H Pulse Oximetry 97 97 Oxygen Delivery Method Oxygen Flow Rate 07/15/22 13:05 07/15/22 13:05 07/15/22 13:10 Temperature Pulse Rate 99 H Respiratory Rate Blood Pressure 158/113 H 162/113 H Pulse Oximetry 97 Oxygen Delivery Method Oxygen Flow Rate 07/15/22 13:10 07/15/22 13:15 07/15/22 13:15 Temperature Pulse Rate 102 H 101 H Respiratory Rate Blood Pressure 159/113 H Pulse Oximetry 97 97 Oxygen Delivery Method Oxygen Flow Rate 07/15/22 13:20 07/15/22 13:20 07/15/22 13:30 Temperature Pulse Rate 98 H Respiratory Rate Blood Pressure 152/115 H 158/113 H Pulse Oximetry 96 Oxygen Delivery Method Oxygen Flow Rate 07/15/22 13:30 07/15/22 14:00 07/15/22 14:00 Temperature Pulse Rate 101 H 91 H Respiratory Rate Blood Pressure 171/117 H Pulse Oximetry 97 97 Oxygen Delivery Method Oxygen Flow Rate 07/15/22 14:27 07/15/22 14:27 07/15/22 14:30 Temperature Pulse Rate 102 H 103 H Respiratory Rate Blood Pressure 159/118 H Pulse Oximetry 97 97 Oxygen Delivery Method Oxygen Flow Rate 07/15/22 14:25 07/15/22 15:03 Temperature 97.0 F L Pulse Rate 103 H Respiratory Rate 22 Blood Pressure 159/118 H Pulse Oximetry 97 Oxygen Delivery Method Room Air Oxygen Flow Rate 0 Oxygen Delivery Method Room Air Oxygen Flow Rate 0 Narrative Exam Narrative: General:? Patient is well developed and well nourished, in no distress at this time. HEENT:? Normocephalic, atraumatic, extraocular muscles intact, oral pharynx is clear and mucous membranes are moist. Neck: supple and symmetric, trachea is midline, no cervical adenopathy. Negative for JVD Chest:? Normal AP diameter and contour without kyphoscoliosis, no tachypnea, equal chest rise bilaterally. Lungs:? CTA b/l no wheezing rhonchi or rales. Cardio:? Irregularly irregular rhythm with a normal rate, there are no murmurs, rubs, or gallops Abdomen: S NT ND. No CVA tenderness. Musculoskeletal:? Muscle strength and tone are equal within normal limits, no deformity. Extremities: No edema or joint effusions. No cyanosis or clubbing. Skin:? Pale,? Warm to touch,dry and intact without rashes, ulcerations or petechiae.? Neuro:? Alert and orientated x3,? sensation to touch intact in all extremities, no gross deficits noted of cranial nerves. Psych:? Patient has a well-kept appearance, appropriate affect, mental status attitude thought context and judgment are appropriate for age. Objective ECG Impression: Atrial fibrillation with rapid ventricular response, no evidence of acute ischemia Labs 07/15/22 10:30 07/15/22 10:30 Labs: Laboratory Results - last 24 hr 07/15/22 07/15/22 07/15/22 10:30 10:30 10:30 WBC 13.8 H RBC 6.07 H Hgb 19.0 H Hct 55.5 H MCV 91.5 MCH 31.2 MCHC 34.2 RDW 13.8 Plt Count 217 Neut % (Auto) 79.8 H Lymph % (Auto) 11.8 L [place] % (Auto) 6.9 Eos % (Auto) 0.8 L Baso % (Auto) 0.7 Neut # (Auto) 55915 H Lymph # (Auto) 1600 [place] # (Auto) 1000 H Eos # (Auto) 100 Baso # (Auto) 100 PT 19.9 H INR 1.7 H Sodium 134 L Potassium 3.7 Chloride 99 Carbon Dioxide 26 BUN 21 H Creatinine 1.22 Estimated GFR > 60 BUN/Creatinine Ratio 17.2 Glucose 198 H Calcium 8.8 Total Bilirubin 2.0 H AST 26 ALT 26 Alkaline Phosphatase 77 Total Creatine Kinase 60 CK-MB (CK-2) TNP CK-MB (CK-2) Rel Index TNP Troponin I < 0.012 NT-Pro-B Natriuret Pep Total Protein 7.2 Albumin 4.0 Globulin 3.2 Albumin/Globulin Ratio 1.3 Lipase 387 H SARS-CoV-2 (PCR) 07/15/22 07/15/22 10:30 12:14 WBC RBC Hgb Hct MCV MCH MCHC RDW Plt Count Neut % (Auto) Lymph % (Auto) [place] % (Auto) Eos % (Auto) Baso % (Auto) Neut # (Auto) Lymph # (Auto) [place] # (Auto) Eos # (Auto) Baso # (Auto) PT INR Sodium Potassium Chloride Carbon Dioxide BUN Creatinine Estimated GFR BUN/Creatinine Ratio Glucose Calcium Total Bilirubin AST ALT Alkaline Phosphatase Total Creatine Kinase CK-MB (CK-2) CK-MB (CK-2) Rel Index Troponin I NT-Pro-B Natriuret Pep 1560 H Total Protein Albumin Globulin Albumin/Globulin Ratio Lipase SARS-CoV-2 (PCR) Negative Assessment & Plan Assessment & Plan narrative: 1. Paroxysmal atrial fibrillation with RVR - wean from diltiazem infusion as tolerated - restart home coreg, but at 25 mg BID instead of 50 and resume home diltiazem 360 mg daily (give 180 mg now, resume home dosing in the morning) - hold home telmisartan and HCTZ for now to provide for rate control preferentially, adjust as needed. - continue home eliquis - prior TTE with EF 45-50% with LVH. Repeat ordered. ProBNP 1560 but no hypoxia and no dyspnea reported. - rule out ACS with 8 hour troponin. EKG without evidence of acute ischemia 2. Essential hypertension - hold home telmisartan and HCTZ for now to provide for rate control preferentially, adjust as needed. 3. Diabetes, type 2 - hold home oral agents for now - sliding scale and diabetic diet ordered. 4. Obesity - contributes to increased risk for apnea, and therefor atrial fibrillation. PCP follow up recommended for continued therapies. 5. HLD, continue home statin, lipitor 20 mg. Code: Full, surrogate is patient's spouse DVT: On apixaban I have utilized all available immediate resources to obtain, update, or review the patient's current medications. Dispo: observation in the ICU given need for diltiazem infusion. Possible discharge home tomorrow if rate is controlled. Additional history obtained from discussions with spouse and ER provider. Time Spent With Patient Critical Care time: I spent a total of [] minutes of critical care time on this patient's care today; this time is exclusive of procedural time.
--- NOTE | 2022-07-15 15:23 | DI.ECHO.S_ITS ---
[facility] +---------+ [facility] +---------+ : : [address] [place] : : : : [id number] : : : : Phone: [phone]+ Echocardiogram Report + + :Name: ASHWIN ORONA Study Date: 07/16/2022 Height: 71 in : :[facility] ReadingLocation: Weight: 277 lb : : Gender: Male BSA: 2.4 m2 : :: 1975 Age: 46 yrs BP: 170/119 mmHg: :Reason For Study: ATRIAL FIBRILLATION, CHEST PAIN : :Ordering Physician: ZANA, : :SUMANTH BEY Performed By: Bren Chaves : :Referring: SUMANTH SPANN : + + Interpretation Summary Left ventricular ejection fraction is estimated to be 50%. There is basal inferior wall hypokinesis. There is trace mitral regurgitation. Procedure: A two-dimensional transthoracic echocardiogram with color flow and Doppler was performed. The study quality was technically adequate. Comparison is made with the echocardiogram of 07/10/2018. The patient was in atrial fibrillation with heart rates between 87-104 bpm during the exam. Left Ventricle: The left ventricle is normal in size. There is mild-moderate concentric left ventricular hypertrophy. Left ventricular ejection fraction is estimated to be 50%. There is basal inferior wall hypokinesis. Diastolic function could not be accurately assessed due to atrial fibrillation. Right Ventricle: The right ventricle is grossly normal size. Right ventricular systolic function is mildly reduced. Atria: The left atrial size is normal. The right atrium is mildly dilated. There is no Doppler evidence for an interatrial shunt. Mitral Valve: The mitral valve is normal in structure and function. There is trace mitral regurgitation. Aortic Valve: The aortic valve is grossly normal. There is no aortic valve stenosis. No aortic regurgitation is present. Tricuspid Valve: The tricuspid valve is normal in structure and function. Pulmonary artery pressures cannot be estimated because of the lack of a measurable TR jet velocity. There is trace tricuspid regurgitation. Pulmonic Valve: The pulmonic valve leaflets are thin and pliable; valve motion is normal. There is no pulmonic valvular regurgitation. Great Vessels: The aortic root is normal size. The dimensions of the ascending aorta are normal. The inferior vena cava was not well visualized. Pericardium/ Pleura There is no pericardial effusion. There is no pleural effusion. MMode/2D Measurements & Calculations LVIDd: 4.7 cm LVOT diam: 2.2 cm LVIDs: 3.3 cm Ao root diam: 2.7 cm FS: 28.3 % asc Aorta Diam: 3.5 cm IVSd: 1.4 cm LVPWd: 1.4 cm LV contreras. diameter/BSA (cm/m^2): 1.9 LV sys. diameter/BSA (cm/m^2): 1.4 LA A2 area: 22.2 cm2 RA long axis: 6.5 cm LA A4 area: 25.7 cm2 RA area: 28.4 cm2 LA length (vol): 6.6 cm RA vol: 104.9 ml LA vol: 73.6 ml RA : 43.3 ml/m2 LA vol index: 30.4 ml/m2 IVC diam: 2.4 cm RVD1 (basal): 3.9 cm TAPSE: 1.5 cm Doppler Measurements & Calculations Ao V2 max: 71.5 cm/sec LVOT Max Patricio: 65.3 cm/sec Ao V2 mean: 51.9 cm/sec LV V1 max P.7 mmHg Ao max P.1 mmHg LV V1 VTI: 11.2 cm Ao mean P.2 mmHg ROBI(I,D): 3.5 cm2 Ao V2 VTI: 12.0 cm ROBI(V,D): 3.4 cm2 sev ratio: 0.93 ROBI indexed to BSA (cm^2/m^2): 1.4 MV E max patricio: 69.7 cm/sec PA V2 max: 57.0 cm/sec MV A max patricio: 0.81 cm/sec PA V2 mean: 42.4 cm/sec MV E/A: 85.6 PA mean P.78 mmHg Med Peak E' Patricio: 6.0 cm/sec PA pr(Accel): 37.9 mmHg E/E' med: 11.6 Lat Peak E' Patricio: 6.7 cm/sec E/E' lat: 10.3 E/e' average: 11.0 MV dec time: 0.13 sec SV(LVOT): 41.7 ml Reading Physician:10:09 AM
[2022-07-15] MEDS: dilTIAZem CD 180 MG CAP PO (15:33)
[2022-07-15 19:32] LABS: Troponin I < 0.012 ng/mL (0.01-0.034)
[2022-07-15] MEDS: carvediloL 12.5 MG TABLET 25 MG PO (21:05)
[2022-07-15] MEDS: APIXABAN 5 MG TABLET PO (21:05)
[2022-07-15] MEDS: ATORVASTATIN 20 MG TABLET PO (21:05)
[2022-07-15] MEDS: ACETAMINOPHEN 325 MG TABLET 650 MG PO (21:11)
[2022-07-16 04:00] VITALS: BP 170/119; PULSE 98; RESP 13; TEMP 36.7; O2SAT 98
--- NOTE | 2022-07-16 04:08 | PC.NURSE ---
Patient with elevated blood pressure, informed Mehul of results and discussed options. Deciding to continue monitor patient. Patient to receive usual dose of cardizem in am.
[2022-07-16 04:21] LABS: Add Manual Diff / Slide Review NO; Basophils Absolute Auto 100 /uL (0-100); Basophils Percent Auto 0.9 % (0-2); Eosinophils Absolute Auto 300 /uL (0-450); Hematocrit 53.5 % (41-53); Hemoglobin 18.2 g/dL (13.5-17.5); Lymphocytes Absolute Auto 2100 /uL (1100-4500); Lymphocytes Percent Auto 14.8 % (25-40); Mean Corpuscular HGB Conc 34.1 % (30-36); Mean Corpuscular Hemoglobin 31.1 PG (26-34); Mean Corpuscular Volume 91.2 fL (80-100); Monocytes Absolute Auto 1300 /uL (0-900); Monocytes Percent Auto 9.3 % (3-14); Neutrophils Absolute Auto 10600 /uL (1500-7000); Platelet Count 194 X10^3/uL (150-400); Red Blood Cell Count 5.87 X10^6/uL (4.5-5.9); Red Cell Distribution Width 14.3 % (11.6-14.8); White Blood Cell Count 14.5 X10^3/uL (4.5-11.0)
[2022-07-16 04:28] LABS: Alanine Aminotransferase 26 IU/L (<50); Albumin 3.7 g/dL (3.5-5.0); Albumin Globulin Ratio 1.2 (1.0-2.8); Alkaline Phosphatase 69 U/L (38-126); Aspartate Aminotransferase 22 IU/L (17-59); BUN Creatinine Ratio 21.7 (6-22); Bilirubin Total 1.6 mg/dL (0.2-1.3); Blood Urea Nitrogen 25 mg/dL (9-20); Calcium 8.5 mg/dL (8.4-10.2); Carbon Dioxide 26 mmol/L (22-32); Chloride 98 mmol/L (98-107); Cholesterol 114 mg/dL (140-199); Estimated Glomerular Filt Rate > 60 mL/min (>60); Glucose 106 mg/dL (70-100); HDL Cholesterol 34 mg/dL (40-60); HEMOLYSIS 18 (0-50); LDL Cholesterol Calculated 58 mg/dL (<100); Magnesium 1.7 mg/dL (1.6-2.3); Potassium 3.1 mmol/L (3.4-5.1); Sodium 135 mmol/L (137-145); Total Protein 6.7 g/dL (6.3-8.2); Triglycerides 108 mg/dL (35-150)
[2022-07-16 04:37] LABS: Hemoglobin A1C% w Est Avg Glu 8.9 % (4.0-6.0)
[2022-07-16 05:24] LABS: TSH w/ Reflex to FT4 0.84 uIU/mL (0.47-4.68)
[2022-07-16 08:33] VITALS: BP 177/112; PULSE 115; RESP 16; TEMP 37.1; O2SAT 99
[2022-07-16] MEDS: dilTIAZem CD 180 MG CAP 360 MG PO (08:44)
[2022-07-16] MEDS: carvediloL 12.5 MG TABLET 25 MG PO ×2 (08:45→11:21)
[2022-07-16] MEDS: APIXABAN 5 MG TABLET PO (08:45)
--- NOTE | 2022-07-16 09:20 | DI.RAD.S_ITS ---
PROCEDURE: XR CHEST 1V INDICATIONS: leukocytosis TECHNIQUE: One view of the chest was acquired. COMPARISON: [facility], , CHEST 2 VIEW, 02/19/2017, 8:54. FINDINGS: Surgical changes and devices: None. Lungs and pleura: Lungs are clear. No pleural effusions or pneumothorax. Mediastinum: Mediastinal contours appear stable. Heart size is stable. Bones and chest wall: No suspicious bony lesions. Overlying soft tissues appear unremarkable. IMPRESSION: Stable radiographic evaluation of the chest without acute cardiopulmonary abnormalities or focal airspace disease. Dictated by: Suman Avery M.D. on 07/16/2022 at 9:54 Approved by: Suman Avery M.D. on 07/16/2022 at 9:55
--- NOTE | 2022-07-16 09:22 | PM.PN.1 ---
Exam Vital Signs (past 8 hours): - 07/16/22 04:00 07/16/22 08:33 Temperature 98.0 F 98.7 F Pulse Rate 98 H 115 H Respiratory Rate 13 16 Blood Pressure 170/119 H 177/112 H Pulse Oximetry 98 99 Oxygen Flow Rate 0 Oxygen Delivery Method Room Air Oxygen Flow Rate 0 Narrative Exam Narrative: General:? Patient is well developed and well nourished, in no distress at this time. HEENT:? Normocephalic, atraumatic, extraocular muscles intact, oral pharynx is clear and mucous membranes are moist. Neck: supple and symmetric, trachea is midline, no cervical adenopathy. Negative for JVD Chest:? Normal AP diameter and contour without kyphoscoliosis, no tachypnea, equal chest rise bilaterally. Lungs:? CTA b/l no wheezing rhonchi or rales. Cardio:? Irregularly irregular rhythm with a normal rate, there are no murmurs, rubs, or gallops Abdomen: S NT ND. No CVA tenderness. Musculoskeletal:? Muscle strength and tone are equal within normal limits, no deformity. Extremities: No edema or joint effusions. No cyanosis or clubbing. Skin:? Pale,? Warm to touch,dry and intact without rashes, ulcerations or petechiae.? Neuro:? Alert and orientated x3,? sensation to touch intact in all extremities, no gross deficits noted of cranial nerves. Psych:? Patient has a well-kept appearance, appropriate affect, mental status attitude thought context and judgment are appropriate for age. Objective Labs 07/16/22 04:09 07/16/22 04:09 Labs: Laboratory Results - last 24 hr 07/15/22 07/15/22 07/15/22 10:30 10:30 10:30 WBC 13.8 H RBC 6.07 H Hgb 19.0 H Hct 55.5 H MCV 91.5 MCH 31.2 MCHC 34.2 RDW 13.8 Plt Count 217 Neut % (Auto) 79.8 H Lymph % (Auto) 11.8 L [place] % (Auto) 6.9 Eos % (Auto) 0.8 L Baso % (Auto) 0.7 Neut # (Auto) 81998 H Lymph # (Auto) 1600 [place] # (Auto) 1000 H Eos # (Auto) 100 Baso # (Auto) 100 PT 19.9 H INR 1.7 H Sodium 134 L Potassium 3.7 Chloride 99 Carbon Dioxide 26 BUN 21 H Creatinine 1.22 Estimated GFR > 60 BUN/Creatinine Ratio 17.2 Glucose 198 H Hemoglobin A1c Calcium 8.8 Magnesium Total Bilirubin 2.0 H AST 26 ALT 26 Alkaline Phosphatase 77 Total Creatine Kinase 60 CK-MB (CK-2) TNP CK-MB (CK-2) Rel Index TNP Troponin I < 0.012 NT-Pro-B Natriuret Pep Total Protein 7.2 Albumin 4.0 Globulin 3.2 Albumin/Globulin Ratio 1.3 Triglycerides Cholesterol LDL Cholesterol, Calc HDL Cholesterol Lipase 387 H TSH Nasal Screen MRSA (PCR) SARS-CoV-2 (PCR) 07/15/22 07/15/22 07/15/22 10:30 12:14 14:44 WBC RBC Hgb Hct MCV MCH MCHC RDW Plt Count Neut % (Auto) Lymph % (Auto) [place] % (Auto) Eos % (Auto) Baso % (Auto) Neut # (Auto) Lymph # (Auto) [place] # (Auto) Eos # (Auto) Baso # (Auto) PT INR Sodium Potassium Chloride Carbon Dioxide BUN Creatinine Estimated GFR BUN/Creatinine Ratio Glucose Hemoglobin A1c Calcium Magnesium Total Bilirubin AST ALT Alkaline Phosphatase Total Creatine Kinase CK-MB (CK-2) CK-MB (CK-2) Rel Index Troponin I NT-Pro-B Natriuret Pep 1560 H Total Protein Albumin Globulin Albumin/Globulin Ratio Triglycerides Cholesterol LDL Cholesterol, Calc HDL Cholesterol Lipase TSH Nasal Screen MRSA (PCR) Negative for mrsa SARS-CoV-2 (PCR) Negative 07/15/22 07/16/22 07/16/22 18:45 04:09 04:09 WBC 14.5 H RBC 5.87 Hgb 18.2 H Hct 53.5 H MCV 91.2 MCH 31.1 MCHC 34.1 RDW 14.3 Plt Count 194 Neut % (Auto) 73.0 Lymph % (Auto) 14.8 L [place] % (Auto) 9.3 Eos % (Auto) 2.0 Baso % (Auto) 0.9 Neut # (Auto) 18082 H Lymph # (Auto) 2100 [place] # (Auto) 1300 H Eos # (Auto) 300 Baso # (Auto) 100 PT INR Sodium 135 L Potassium 3.1 L Chloride 98 Carbon Dioxide 26 BUN 25 H Creatinine 1.15 Estimated GFR > 60 BUN/Creatinine Ratio 21.7 Glucose 106 H Hemoglobin A1c Calcium 8.5 Magnesium 1.7 Total Bilirubin 1.6 H AST 22 ALT 26 Alkaline Phosphatase 69 Total Creatine Kinase CK-MB (CK-2) CK-MB (CK-2) Rel Index Troponin I < 0.012 NT-Pro-B Natriuret Pep Total Protein 6.7 Albumin 3.7 Globulin 3.0 Albumin/Globulin Ratio 1.2 Triglycerides 108 Cholesterol 114 L LDL Cholesterol, Calc 58 HDL Cholesterol 34 L Lipase TSH Nasal Screen MRSA (PCR) SARS-CoV-2 (PCR) 07/16/22 07/16/22 04:09 04:09 WBC RBC Hgb Hct MCV MCH MCHC RDW Plt Count Neut % (Auto) Lymph % (Auto) [place] % (Auto) Eos % (Auto) Baso % (Auto) Neut # (Auto) Lymph # (Auto) [place] # (Auto) Eos # (Auto) Baso # (Auto) PT INR Sodium Potassium Chloride Carbon Dioxide BUN Creatinine Estimated GFR BUN/Creatinine Ratio Glucose Hemoglobin A1c 8.9 H Calcium Magnesium Total Bilirubin AST ALT Alkaline Phosphatase Total Creatine Kinase CK-MB (CK-2) CK-MB (CK-2) Rel Index Troponin I NT-Pro-B Natriuret Pep Total Protein Albumin Globulin Albumin/Globulin Ratio Triglycerides Cholesterol LDL Cholesterol, Calc HDL Cholesterol Lipase TSH 0.84 Nasal Screen MRSA (PCR) SARS-CoV-2 (PCR) [facility] Medical History Atrial fibrillation Chronic non-seasonal allergic rhinitis Diabetic nephropathy Elevated troponin Hyperlipidemia Hypertension Hypertensive emergency Mild concentric left ventricular hypertrophy (LVH) Obesity (BMI 30-39.9) Obstructive sleep apnea, adult Primary central sleep apnea (~03/2020) 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 Paroxysmal atrial fibrillation with RVR - wean from diltiazem infusion as tolerated - restart home coreg, but at 25 mg BID instead of 50 and resume home diltiazem 360 mg daily (give 180 mg now, resume home dosing in the morning) - hold home telmisartan and HCTZ for now to provide for rate control preferentially, adjust as needed. - continue home eliquis - prior TTE with EF 45-50% with LVH. Repeat ordered. ProBNP 1560 but no hypoxia and no dyspnea reported. - rule out ACS with 8 hour troponin. EKG without evidence of acute ischemia 2. Essential hypertension - hold home telmisartan and HCTZ for now to provide for rate control preferentially, adjust as needed. 3. Diabetes, type 2 - hold home oral agents for now - sliding scale and diabetic diet ordered. 4. Obesity - contributes to increased risk for apnea, and therefor atrial fibrillation. PCP follow up recommended for continued therapies. 5. HLD, continue home statin, lipitor 20 mg. Code: Full, surrogate is patient's spouse DVT: On apixaban I have utilized all available immediate resources to obtain, update, or review the patient's current medications. Dispo: observation in the ICU given need for diltiazem infusion. Possible discharge home tomorrow if rate is controlled. Additional history obtained from discussions with spouse and ER provider. Time Spent With Patient Critical Care time: I spent a total of [] minutes of critical care time on this patient's care today; this time is exclusive of procedural time.
[2022-07-16] MEDS: MAGNESIUM SULFATE 2 GM/50 ML PIGGYBACK IV (09:29)
[2022-07-16] MEDS: POTASSIUM CHLORIDE 20 MEQ TAB 40 MEQ PO (09:30)
[2022-07-16 10:58] LABS: Appearance Urine UA CLEAR; Bilirubin Urine UA NEGATIVE (NEGATIVE); Color Urine UA YELLOW; Glucose Urine UA 3+ g/dL (Negative); Ketones Urine UA 2+ (NEGATIVE); Leukocyte Esterase Urine UA NEGATIVE (NEGATIVE); Nitrite Urine UA NEGATIVE (Negative); Occult Blood Urine UA 1+ (Negative); Protein Urine UA 1+ (Negative); Specific Gravity Urine UA 1.015 (1.000-1.035); Urobilinogen Urine UA 0.2 E.U./dL (0.2); pH Urine UA 5.5 (4.5-8.0)
[2022-07-16 11:15] LABS: RBC Urine 0-1/HPF (0-5/HPF); WBC Urine 0-1/HPF (0-5/HPF)
--- NOTE | 2022-07-16 11:15 | DIET.CONS2 ---
Addendum entered by Xenia Elizalde 07/16/22 11:29: RD agrees with Dietetic note below. Original Note: Dietary Inpatient Consultation Note Admission Date: 07/15/2022 12:13 46 y/o M admitted for stomach pain secondary to afib RVR. RD consulted for A1c 8.9%. Met with pt bedside to discuss current situation. Pt has not been taking heart medication due to insurance changes. He reports no changes with DM medications, however, A1c was high at 8.9%. Pt taking Trulicity 0.75 mg subcut weekly, Jardiance 25 mg PO daily, and Glimepiride 2 mg PO in morning. Pt reported motivation as a barrier to DM control through diet. 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 Pt feels he has good diabetes nutrition knowledge but it open to meeting with critical care educator at . Called [facility] (Dr. Shah) to get a referral. Pt to schedule for outpatient diabetes education when referral comes in. Diet: 07/15/22 Lunch Carbohydrate Consistent Diet Diet Modifications: Carbohydrate level: Large (4 CHO) Nutrition Percent Meal Consumed 100% 07/16/22 09:28 Percent Meal Consumed 100% 07/15/22 17:30 Electronically Signed by: Maria Antonia Cristina 07/16/22 11:15 Clinical Dietitian [address] [id number]
[2022-07-16 11:16] LABS: Bacteria Urine Few (2-10); Culture Indicated Urine Cult Not Indicated
[2022-07-16 12:00] VITALS: BP 145/104; PULSE 88; RESP 18; O2SAT 99
--- NOTE | 2022-07-16 15:30 | PM.DS.1 ---
History of Present Illness History of Present Illness Date Patient Seen: 07/16/22 Time Patient Seen: 15:30 Chief complaint: pit in my stomach pain Narrative: This is a 46 year old male with PMH of paroxysmal afib, HTN, obesity, diabetes who presented with 3 days of epigastric pain. Patient states for the past 3-4 days he has had epigastric squeeing type pain. It is non-radiating and has been constant but waxing and waning in severity, anywhere from a 3/10 to 6/10. He took some tums with mild improvement, but with continued symptoms today he came to the ER. He denies chest pain or palpitations, no nausea or vomiting, perhaps he has noticed mild diaphoresis but no headaches, vision changes, fever, chills, dysuria or urinary frequency. He had an issue with his insurance and primary care office, has been out of his home diltiazem for a few weeks. In the emergency room, he was found to be tachycardic, in atrial fibrillation with a rate. Was also noted to be mildly hypertensive but the remainder of his vital signs were unremarkable. EKG showed AFib with are without evidence of acute ischemia. Chest x-ray was unremarkable. There was an attempted cardioversion in the ER x3, but without success. He was started on diltiazem infusion, admitted for further management of afib with RVR. After arrival and control of his rate, his abdominal pain has now resolved. Discharge Providers Provider Date of admission: 07/15/22 12:13 Discharge Date: 07/16/22 Primary care physician: Elio Potter MD Consults: 07/16/22 09:23 Consult to Dietitian, Adult Routine Comment: Reason For Exam: a1c 8.9% Discharge provider: Eldon Ji DO Summary Hospital Course Discharge Diagnosis: 1. Paroxysmal atrial fibrillation with RVR - weaned from diltiazem infusion - restarted coreg 50 BID and home diltiazem 360 mg daily, HR well controlled in 80's - continue home eliquis - prior TTE with EF 45-50% with LVH. Repeat ordered with unchanged EF of 50%. ProBNP 1560 but no hypoxia and no dyspnea reported. - trop neg x2 - getting referral from PCP to heavy equipment rental associate for follow-up 2. Essential hypertension - hold home telmisartan and HCTZ for now to provide for rate control preferentially, adjust as needed. -resumed BP meds on discharge 3. Diabetes, type 2 - hold home oral agents for now - sliding scale and diabetic diet ordered. 4. Obesity - contributes to increased risk for apnea, and therefore atrial fibrillation. PCP follow up recommended for continued therapies. 5. HLD, continue home statin, lipitor 20 mg. Hospital Course: Admitted for A-fib RVR and placed on dilt drip. Likely cause was he ran out of his dilt. This was weaned off overnight and he was transitioned back on his oral po dilt and coreg. He will get referral from his PCP to cardiology for ongoing management. Time Spent with Patient Time spent: Greater than 30 minutes Exam Vital Signs (past 8 hours): - 07/16/22 08:33 07/16/22 12:00 Temperature 98.7 F Pulse Rate 115 H 88 Respiratory Rate 16 18 Blood Pressure 177/112 H 145/104 H Pulse Oximetry 99 99 Oxygen Flow Rate 0 Oxygen Delivery Method Room Air Oxygen Flow Rate 0 Narrative Exam Narrative: General:? Patient is well developed and well nourished, in no distress at this time. HEENT:? Normocephalic, atraumatic, extraocular muscles intact, oral pharynx is clear and mucous membranes are moist. Neck: supple and symmetric, trachea is midline, no cervical adenopathy. Negative for JVD Chest:? Normal AP diameter and contour without kyphoscoliosis, no tachypnea, equal chest rise bilaterally. Lungs:? CTA b/l no wheezing rhonchi or rales. Cardio:? Irregularly irregular rhythm with a normal rate, there are no murmurs, rubs, or gallops Abdomen: S NT ND. No CVA tenderness. Musculoskeletal:? Muscle strength and tone are equal within normal limits, no deformity. Extremities: No edema or joint effusions. No cyanosis or clubbing. Skin:? Pale,? Warm to touch,dry and intact without rashes, ulcerations or petechiae.? Neuro:? Alert and orientated x3,? sensation to touch intact in all extremities, no gross deficits noted of cranial nerves. Psych:? Patient has a well-kept appearance, appropriate affect, mental status attitude thought context and judgment are appropriate for age. Objective Labs 07/16/22 04:09 07/16/22 04:09 Labs: Laboratory Results - last 24 hr 07/15/22 07/15/22 07/16/22 14:44 18:45 04:09 WBC 14.5 H RBC 5.87 Hgb 18.2 H Hct 53.5 H MCV 91.2 MCH 31.1 MCHC 34.1 RDW 14.3 Plt Count 194 Neut % (Auto) 73.0 Lymph % (Auto) 14.8 L Harney % (Auto) 9.3 Eos % (Auto) 2.0 Baso % (Auto) 0.9 Neut # (Auto) 82999 H Lymph # (Auto) 2100 Harney # (Auto) 1300 H Eos # (Auto) 300 Baso # (Auto) 100 Sodium Potassium Chloride Carbon Dioxide BUN Creatinine Estimated GFR BUN/Creatinine Ratio Glucose Hemoglobin A1c Calcium Magnesium Total Bilirubin AST ALT Alkaline Phosphatase Troponin I < 0.012 Total Protein Albumin Globulin Albumin/Globulin Ratio Triglycerides Cholesterol LDL Cholesterol, Calc HDL Cholesterol TSH Urine Color Urine Appearance Urine pH Ur Specific [place] Urine Protein Urine Glucose (UA) Urine Ketones Urine Occult Blood Urine Nitrate Urine Bilirubin Urine Urobilinogen Ur Leukocyte Esterase Urine RBC Urine WBC Urine Bacteria Ur Culture Indicated? Nasal Screen MRSA (PCR) Negative for mrsa 07/16/22 07/16/22 07/16/22 04:09 04:09 04:09 WBC RBC Hgb Hct MCV MCH MCHC RDW Plt Count Neut % (Auto) Lymph % (Auto) [place] % (Auto) Eos % (Auto) Baso % (Auto) Neut # (Auto) Lymph # (Auto) [place] # (Auto) Eos # (Auto) Baso # (Auto) Sodium 135 L Potassium 3.1 L Chloride 98 Carbon Dioxide 26 BUN 25 H Creatinine 1.15 Estimated GFR > 60 BUN/Creatinine Ratio 21.7 Glucose 106 H Hemoglobin A1c 8.9 H Calcium 8.5 Magnesium 1.7 Total Bilirubin 1.6 H AST 22 ALT 26 Alkaline Phosphatase 69 Troponin I Total Protein 6.7 Albumin 3.7 Globulin 3.0 Albumin/Globulin Ratio 1.2 Triglycerides 108 Cholesterol 114 L LDL Cholesterol, Calc 58 HDL Cholesterol 34 L TSH 0.84 Urine Color Urine Appearance Urine pH Ur Specific [place] Urine Protein Urine Glucose (UA) Urine Ketones Urine Occult Blood Urine Nitrate Urine Bilirubin Urine Urobilinogen Ur Leukocyte Esterase Urine RBC Urine WBC Urine Bacteria Ur Culture Indicated? Nasal Screen MRSA (PCR) 07/16/22 10:31 WBC RBC Hgb Hct MCV MCH MCHC RDW Plt Count Neut % (Auto) Lymph % (Auto) [place] % (Auto) Eos % (Auto) Baso % (Auto) Neut # (Auto) Lymph # (Auto) Har[place] # (Auto) Eos # (Auto) Baso # (Auto) Sodium Potassium Chloride Carbon Dioxide BUN Creatinine Estimated GFR BUN/Creatinine Ratio Glucose Hemoglobin A1c Calcium Magnesium Total Bilirubin AST ALT Alkaline Phosphatase Troponin I Total Protein Albumin Globulin Albumin/Globulin Ratio Triglycerides Cholesterol LDL Cholesterol, Calc HDL Cholesterol TSH Urine Color Yellow Urine Appearance Clear Urine pH 5.5 Ur Specific [place] 1.015 Urine Protein 1+ H Urine Glucose (UA) 3+ H Urine Ketones 2+ H Urine Occult Blood 1+ H Urine Nitrate Negative Urine Bilirubin Negative Urine Urobilinogen 0.2 Ur Leukocyte Esterase Negative Urine RBC 0-1/hpf Urine WBC 0-1/hpf Urine Bacteria Few (2-10) H Ur Culture Indicated? 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 Your A-fib likely went too fast because you ran out of your diltiazem. We've put you back on these meds. Your echo showed borderline low/normal heart function. Our heavy equipment rental associate recommended you get an outpatient nuclear stress test for this. Discharge orders & Medications Prescriptions: Continued potassium chloride [Klor-Con M20] 20 MEQ tablet,ER particles/crystals 20 meq PO BIDCC Qty: 60 12RF atorvastatin [Lipitor] 20 mg Tablet 20 mg PO QPM telmisartan 80 mg Tablet 80 mg PO DAILY Eliquis 5 mg Tablet 5 mg PO BID Jardiance 25 mg Tablet 25 mg PO DAILY Trulicity 0.75 mg/0.5 mL Pen Injector 0.75 mg SUBCUT QWEEK diltiazem HCl 360 mg Capsule,Extended Release 24 Hr 360 mg PO DAILY 90 Days Qty: 90 0RF carvedilol [Coreg] 25 mg tablet 50 mg PO BID glimepiride 2 mg tablet 2 mg PO QAM hydrochlorothiazide 25 mg tablet 50 mg PO DAILY Follow up/Referrals: Binh Shah MD [Physician] - 07/22/22 2:00 pm (Appt:07/22 @ 2:00 with mary ovalle for Dr Olguin please arrive 15 minutes prior to scheduled appointment time) Visit Report/Discharge Packet Instructions: DI for Atrial Fibrillation Stand Alone Forms: Patient Portal/API, Stroke Signs & Symptoms, Work/Release Restrictions Discharge Data Primary Care Provider: Elio Potter Attending Provider: Eric Mary
== END 2022-07-16 14:43 | disposition home or self-care (01) ==
LOC: ED 10:21 → AC 12:14 → ICU 14:37
PROVIDERS: Student in an Organized Health Care Education/Training Program; Admitting Provider Internal Medicine; Emergency Provider Emergency Medicine; Family Provider Internal Medicine; PCP Internal Medicine; Referring Provider Emergency Medicine; Visit Provider Internal Medicine
DX: I48.0 Paroxysmal atrial fibrillation (principal); Z79.01 Long term (current) use of anticoagulants; E11.9 Type 2 diabetes mellitus without complications; I10 Essential (primary) hypertension; Z79.84 Long term (current) use of oral hypoglycemic drugs; E78.5 Hyperlipidemia, unspecified; E66.9 Obesity, unspecified; Z20.822 Contact with and (suspected) exposure to COVID-19
CPT/HCPCS: 36415; 71045; 80053; 80061; 81001; 82550; 82962; 83036; 83690; 83735; 83880; 84443; 84484; 85025; 85610; 87635; 87797; 92960; 93005; 93306; 96365; 96366; 99152; 99285; C9803; G0378; J2704; J3475

== ENCOUNTER → 2024-02-13 14:38 | Outpatient (CLI) | payer OTHER, SELFPAY ==
[2022-07-15 15:10] VITALS: BMI 38.7
--- NOTE | 2024-02-13 14:41 | DI.ECHO.S_ITS ---
[facility] : : [id number] [place] : : [id number] : : Phone: [phone] Echocardiogram Report + + :Name: ASHWIN ORONA Study Date: 02/13/2024 Height: 71 in : :[facility] ReadingLocation: Weight: 270 lb : : Gender: Male BSA: 2.4 m2 : :: 1975 Age: 48 yrs BP: 131/92 mmHg: :Reason For Study: ABNORMAL ECHO : :Ordering Physician: CAROL, : :GRACE Padilla Performed By: Bren Chaves : :Referring: GRACE MEDINA : + + Interpretation Summary The patient was in atrial fibrillation with heart rates between 71-86 bpm during the exam. There is mild concentric left ventricular hypertrophy. The ejection fraction is estimated to be 65-70%. Diastolic function could not be accurately assessed due to atrial fibrillation. The left atrium is mildly dilated. The right ventricle is borderline dilated. The right ventricular systolic function is normal. Pulmonary artery pressures cannot be estimated because of the lack of a measurable TR jet velocity but the IVC suggests a CVP of around 3 mmHg. Compared to the prior study dated 07/16/2022, the ejection fraction has increased. Procedure: A two-dimensional transthoracic echocardiogram with color flow and Doppler was performed. The study quality was technically adequate. Comparison is made with the echocardiogram of 07/16/2022. The patient was in atrial fibrillation with heart rates between 71-86 bpm during the exam. Left Ventricle: The left ventricle is normal in size. There is mild concentric left ventricular hypertrophy. The ejection fraction is estimated to be 65-70%. Diastolic function could not be accurately assessed due to atrial fibrillation. Right Ventricle: The right ventricle is borderline dilated. The right ventricular systolic function is normal. Atria: The left atrium is mildly dilated. Right atrial size is normal. There is no Doppler evidence for an interatrial shunt. Mitral Valve: The mitral valve is normal in structure and function. There is trace mitral regurgitation. Aortic Valve: The aortic valve is trileaflet. The aortic valve opens well. There is no aortic valve stenosis. No aortic regurgitation is present. Tricuspid Valve: The tricuspid valve is normal in structure and function. There is trace tricuspid regurgitation. Pulmonary artery pressures cannot be estimated because of the lack of a measurable TR jet velocity but the IVC suggests a CVP of around 3 mmHg. Pulmonic Valve: The pulmonic valve leaflets are thin and pliable; valve motion is normal. There is no pulmonic valvular regurgitation. Great Vessels: The aortic root is normal size. The dimensions of the ascending aorta are normal. The IVC is of normal diameter and collapses greater than 50% with a sniff. This suggests a low right atrial pressure of 3 mm Hg. Pericardium/ Pleura There is no pericardial effusion. There is no pleural effusion. MMode/2D Measurements & Calculations LVIDd: 4.7 cm LVOT diam: 2.1 cm LVIDs: 3.0 cm Ao root diam: 3.2 cm FS: 35.2 % asc Aorta Diam: 3.4 cm IVSd: 1.4 cm LVPWd: 1.4 cm LV contreras. diameter/BSA (cm/m^2): 2.0 LV sys. diameter/BSA (cm/m^2): 1.3 LA A2 area: 25.8 cm2 RA long axis: 5.5 cm LA A4 area: 23.7 cm2 RA area: 19.8 cm2 LA length (vol): 6.0 cm RA vol: 59.9 ml LA vol: 86.9 ml RA : 25.0 ml/m2 LA vol index: 36.3 ml/m2 IVC diam: 1.8 cm RVD1 (basal): 4.1 cm TAPSE: 1.7 cm Doppler Measurements & Calculations Ao V2 max: 111.2 cm/sec LVOT Max Patricio: 80.0 cm/sec Ao V2 mean: 83.8 cm/sec LV V1 max P.6 mmHg Ao max P.0 mmHg LV V1 VTI: 13.6 cm Ao mean P.0 mmHg ROBI(I,D): 2.7 cm2 Ao V2 VTI: 18.3 cm ROBI(V,D): 2.6 cm2 sev ratio: 0.75 ROBI indexed to BSA (cm^2/m^2): 1.1 MV E max patricio: 80.5 cm/sec PA V2 max: 71.1 cm/sec MV A max patricio: 0.68 cm/sec PA V2 mean: 49.9 cm/sec MV E/A: 118.3 PA mean P.1 mmHg Med Peak E' Patricio: 6.6 cm/sec PA pr(Accel): 24.2 mmHg E/E' med: 12.3 Lat Peak E' Patricio: 5.5 cm/sec E/E' lat: 14.7 E/e' average: 13.5 MV dec time: 0.18 sec SVLVOT): 49.1 ml Reading Physician:12:59 PM
== END ==
LOC: ECHO 14:39
PROVIDERS: Family Provider Internal Medicine; PCP Physician Assistant; Referring Provider Internal Medicine Cardiovascular Disease; Visit Provider Internal Medicine Cardiovascular Disease
DX: I48.91 Unspecified atrial fibrillation (principal); R93.1 Abnormal findings on diagnostic imaging of heart and coronary circulation
CPT/HCPCS: 93306

== ENCOUNTER → 2025-04-06 08:00 | Outpatient (CLI) | payer OTHER, SELFPAY ==
[2022-07-15 15:10] VITALS: BMI 38.7
--- NOTE | 2025-04-06 08:05 | DI.RAD.S_ITS ---
PROCEDURE: XR CHEST 2V INDICATIONS: Secondary polycythemia TECHNIQUE: 2 views of the chest were acquired. COMPARISON: [facility], CR, XR CHEST 1V, 07/16/2022, 9:18. FINDINGS: Surgical changes and devices: None. Lungs and pleura: Lungs are clear. No pleural effusions or pneumothorax. Mediastinum: Mediastinal contours are normal. Heart size is normal. Bones and chest wall: No suspicious bony abnormalities. Soft tissues appear unremarkable. IMPRESSION: No acute cardiopulmonary abnormality is seen. Dictated by: Felicity Nielsen M.D. on 04/06/2025 at 14:29 Approved by: Felicity Nielsen M.D. on 04/06/2025 at 14:30
== END ==
LOC: RAD 08:02
PROVIDERS: Family Provider Internal Medicine; PCP Family Medicine; Referring Provider Family Medicine; Visit Provider Family Medicine
DX: G47.30 Sleep apnea, unspecified (principal); D75.1 Secondary polycythemia; R79.81 Abnormal blood-gas level
CPT/HCPCS: 71046